=== PATIENT | male | born 1995 | race Caucasian/White ===

== ENCOUNTER 2016-10-04 23:04 | Emergency (ER) | payer BC, OTHER ==
[~2016-10-04] VITALS: Ht 195.6 cm; Wt 91.0 kg
[2016-10-04 23:10] VITALS: Ht 195.6 cm; Wt 91.0 kg
--- NOTE | 2016-10-05 02:25 | RADRPT ---
PROCEDURE: XR Hand. CLINICAL INDICATION: Laceration injury rule out foreign body TECHNIQUE: AP oblique and lateral views of the right hand were obtained. COMPARISON: No prior studies are available for comparison. FINDINGS: Soft tissue laceration dorsal to region of the head of the fifth metacarpal. No fracture, dislocatio n or radiopaque foreign body is seen. IMPRESSION: Soft tissue laceration dorsal to region of the head of the fifth metacarpal. RPTAT: HJES .Dominic Patel MD, Date Time Electronically viewed and signed by .Dominic Patel MD, on 10/05/2016 02:24 .S/
--- NOTE | 2016-10-05 02:26 | ERD ---
ER Documentation Chief Complaint Date/Time DATE: 10/05/16 TIME: 02:23 Chief Complaint Pt punched a plate with r hand lac to 5th knuckle HPI 20-year-old male presents here in emergency department for complaints of right hand laceration wound after a plate broke on it. Patient feels possibly pieces of the plate in his hand. Patient describes the pain as sharp pain, 6/10 scale, is worse upon movement. Patient's laceration was or bleeding but it is controlled. Patient denies any numbness or tingling. Patient denies any deformity. Patient denies any joint involvement. Patient is able to move the joint of the right hand without any restriction. ROS All systems reviewed and are negative except as per history of present illness. Medications Home Meds Reported Medications [none] Unknown Strength No Conflict Check 10/05/16 Allergies Allergies: Coded Allergies: No Known Allergy (Unverified , 10/05/16) PMhx/Soc Medical and Surgical Hx: pt denies Medical Hx, pt denies Surgical Hx Hx Alcohol Use: No Hx Substance Use: No Hx Tobacco Use: No Smoking Status: Never smoker FmHx Family History: No coronary disease, No diabetes, No other Physical Exam Vitals Vital Signs Date Time Temp Pulse Resp B/P Pulse Ox O2 Delivery O2 Flow Rate FiO2 10/04/16 23:10 98.1 75 20 135/70 100 Physical Exam GENERAL: The patient is well developed and appropriate for usual state of health, in no apparent distress. CHEST: Clear to auscultation bilaterally. There are no rales, wheezes or rhonchi. HEART: Regular rate and rhythm. No murmurs, clicks, rubs or gallops. No S3 or S4. ABDOMEN: Soft, nontender and nondistended. Good bowel sounds. No rebound or guarding. No gross peritonitis. No gross organomegaly or masses. No Bello sign or McBurney point tenderness. BACK: No midline or flank tenderness. EXTREMITIES: Equal pulses bilaterally. There is no peripheral clubbing, cyanosis or edema. No focal swelling or erythema. Full range of motion. Grossly neurovascularly intact. NEURO: Alert and oriented. Cranial nerves 2-12 intact. Motor strength in all 4 extremities with 5/5 strength. Sensation grossly intact. Normal speech and gait. SKIN: 1.5 cm and 2 cm laceration irregular wound noted on the right dorsal aspect of the hand. No palpable foreign body. There is no apparent ecchymosis or petechia. The skin is warm and dry. HEMATOLOGIC AND LYMPHATIC: There is no evidence of excessive bruising or lymphedema. No gross cervical, axillary, or inguinal lymphadenopathy. Results 24 hrs Current Medications Medications (Trade) Dose Ordered Sig/Kristi Route PRN Reason Start Time Stop Time Status Last Admin Dose Admin Lidocaine (Xylocaine 1% (Mdv) 20 ml) 2 ml ONCE ONCE SC 10/05/16 03:00 10/05/16 03:01 DC 10/05/16 03:16 PROCEDURE: XR Hand. CLINICAL INDICATION: Laceration injury rule out foreign body TECHNIQUE: AP oblique and lateral views of the right hand were obtained. COMPARISON: No prior studies are available for comparison. FINDINGS: Soft tissue laceration dorsal to region of the head of the fifth metacarpal. No fracture, dislocation or radiopaque foreign body is seen. IMPRESSION: Soft tissue laceration dorsal to region of the head of the fifth metacarpal. RPTAT: HJES .Dominic Patel MD, MD Date Time Electronically viewed and signed by .Dominic Patel MD, MD on 10/05/2016 02:24 .S/ CC: MEGAN ZAVALETA DENTAL HYGIENE ADMINISTRATIVE ASSISTANT Procedures/MDM Procedure Note: After obtaining informed consent, the wound was irrigated with 250 ml of normal saline and cleaned with diluted betadine. Using aseptic technique, 3 ml of 1% lidocaine was injected on the subcutaneous tissue of the laceration wound for anesthetic. After the anesthetic, the wound was approximated using 4 interrupted sutures of 4-0 Prolene on the first laceration, 4 interrupted sutures of 4-0 Prolene on the second laceration. After the procedure, the wound was well approximated. Patient tolerated procedure well. Bacitracin was applied on the area and a dry dressing. Medical Decision Making: Patient's pain is most likely consistent with a laceration wound and affected area, no foreign body, no tendon involvement, no joint involvement. There is no suspicion for neurovascular compromise. Patient has intact sensation and circulation of the affected extremity. There is low suspicion for septic arthritis. Patient does not have any fever. Radiology exams of the affected area does not show any fracture or dislocation, does not show any foreign body. Disposition: Home. Patient is given prescription for ibuprofen for pain, Keflex to prevent infection, trauma for severe pain. Patient was advised to elevate the affected area and apply ice on affected area. Patient was advised that if symptoms are worse, numbness, tingling, high fever, unable to move joint, worsening symptoms, to return to emergency department immediately. Otherwise, patient is advised to follow up with the primary care doctor wound check in 2 days, suture removal in 7-10 days. Departure Diagnosis: Primary Impression: Hand laceration Encounter type: initial encounter Foreign body presence: without foreign body Laterality: right Qualified Code: S61.411A - Laceration of right hand without foreign body, initial encounter Condition: Stable Patient Instructions: Laceration, Hand Additional Instructions: Patient is given prescription for ibuprofen for pain, Keflex to prevent infection, trauma for severe pain. Patient was advised to elevate the affected area and apply ice on affected area. Patient was advised that if symptoms are worse, numbness, tingling, high fever, unable to move joint, worsening symptoms , to return to emergency department immediately. Otherwise, patient is advised to follow up with the primary care doctor wound check in 2 days, suture removal in 7-10 days. MEGAN ZAVALETA NP Oct 05, 2016 02:26
[2016-10-05] MEDS ORDERED: LIDOCAINE 1% (MDV) 20 ML INJ SC ONE (03:00)
[2016-10-05] MEDS ORDERED: IBUP-1542 PO (03:38)
[2016-10-05] MEDS ORDERED: TRAM50TA2 PO ×2 (03:38→03:57)
[2016-10-05] MEDS ORDERED: CEPH-443 PO (03:38)
[2016-10-05 04:02] VITALS: BP 128/77; PULSE 70; RESP 20; TEMP 98.3
== END 2016-10-05 04:36 | disposition home or self-care (01) ==
LOC: FTE 23:04
DX: S61.411A Laceration without foreign body of right hand, initial encounter (principal); W26.8XXA Contact with other sharp object(s), not elsewhere classified, initial encounter; Y92.9 Unspecified place or not applicable
CPT/HCPCS: 12002; 73130; Z7502; Z7610

== ENCOUNTER 2017-11-21 06:12 | Emergency (ER) | END 2017-11-21 07:48 | disposition home or self-care (01) ==